=== PATIENT | female | born 1950 | race Caucasian/White ===

== ENCOUNTER → 2023-09-27 | Outpatient (CLI) | payer MEDICARE, BC ==
[2023-09-27 07:47] LABS: Basophils % (A) 0 %; Eosinophils % (A) 0 %; HCT 42.3 % (34.0-46.0); Lymphocytes # (A) 1.3 k/uL (1.0-4.8); Lymphocytes % (A) 16 %; MCH 31.3 pg (25.0-35.0); MCHC 33.1 g/dL (31.0-37.0); MCV 94.6 fL (80.0-100.0); Mean Platelet Volume 7.1; Monocytes # (A) 0.6 k/uL (0-1.0); Monocytes % (A) 8 %; Neutrophils # (A) 5.9 k/uL (1.3-7.7); Neutrophils % (A) 73 %; Platelet Count 391 k/uL (150-450); RBC 4.47 m/uL (3.80-5.40); RDW 14.1 % (11.5-15.5)
[2023-09-27 07:56] LABS: ALT 35 U/L (4-34); AST 33 U/L (14-36); African American GFR (CKD) >90 (>60 ml/min/1.73 sqM); Albumin 4.3 g/dL (3.5-5.0); Albumin/Globulin Ratio 1.4; Alkaline Phosphatase 57 U/L (38-126); Anion Gap 7 mmol/L; Blood Urea Nitrogen 24 mg/dL (7-17); Carbon Dioxide 26 mmol/L (22-30); Chloride 106 mmol/L (98-107); Globulin 3.1 g/dL; Glucose 73 mg/dL (74-99); Non-African American GFR(CKD) 88 (>60 ml/min/1.73 sqM); Potassium 3.8 mmol/L (3.5-5.1); Sodium 139 mmol/L (137-145); Total Bilirubin 0.9 mg/dL (0.2-1.3); Total Protein 7.4 g/dL (6.3-8.2)
--- NOTE | 2023-09-27 09:24 | CT ---
EXAMINATION TYPE: CT chest w con CT DLP: 155.4 mGycm, Automated exposure control for dose reduction was used. DATE OF EXAM: 09/27/2023 8:27 AM COMPARISON: Chest radiograph from 09/26/2023. CLINICAL INDICATION:Female, 72 years old with history of R05.3 CHRONIC COUGH; PHH, cough TECHNIQUE: Multiple axial images were obtained through the chest. Sagittal and coronal reformats were created for review. Contrast used:100 mL of Isovue 300 with IV Contrast (None if empty) Oral contrast used: (None if empty) FINDINGS: LUNGS/ PLEURA: Streaky atelectasis seen within the lung bases without focal airspace consolidation. N o pneumothorax or pleural effusion. Patchy airspace opacities in the right middle lobe. AIRWAY: Patent and unremarkable. HEART: Size within normal limits. Mild atherosclerosis of the arterial vasculature. MEDIASTINUM: No gross evidence of adenopathy. VASCULATURE: No aortic aneurysm. There is narrowing of the celiac axis at its origin off the aorta w ith poststenotic dilation suggesting some degree of stenosis. MUSCULOSKELETAL: No acute osseous abnormalities SOFT TISSUES/LYMPH NODES: Surgical clips in the left axilla. LOWER NECK: No significant findings. UPPER ABDOMEN: Probable liver cyst. IMPRESSION: 1. Right middle lobe patchy airspace opacities suggestive of pneumonia in the setting of cough. Shor t-term follow-up recommended. 2. 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 3. No evidence for pulmonary embolus or aortic dissection. 4. No evidence for lymphadenopathy. Follow up recommendations for incidental pulmonary nodules, if there are any, are per [employer] or [employer]. [email or web address].org/articles/[email or web address]?[email or web address]
[2023-09-27 15:47] LABS: Erythrocyte Sedimentation Rate 36 mm/Hr (0-30)
== END | disposition home or self-care (01) ==
LOC: RADCTMAIN 07:10
PROVIDERS: ATTEND Internal Medicine
DX: R91.8 Other nonspecific abnormal finding of lung field (principal); R05.3 Chronic cough
CPT/HCPCS: 82652; 80053; 85652; 84436; 84443; 85025; 86038; 71260; 36415; Q9967

== ENCOUNTER 2023-10-04 11:16 | Day surgery (SDC) | payer MEDICARE, BC ==
[~2023-10-04 11:16] MED LIST: HYDROmorphone 0.5 MG/0.5 ML SYRINGE IVP PRN; LACTATED RINGERS 1,000 ML IV SCH
[2023-10-04] MEDS ORDERED: SUCCINYLCHOLINE CHLORIDE 200 MG/10 ML VIAL IV ONE (12:15)
[2023-10-04] MEDS ORDERED: fentaNYL (PF) 50 MCG/ML 2 ML AMP ONE (12:15)
[2023-10-04] MEDS ORDERED: MIDAZOLAM 2 MG/2 ML VIAL ONE (12:15)
[2023-10-04] MEDS ORDERED: PROPOFOL 10 MG/ML 20 ML VIAL IV ONE (12:15)
[2023-10-04] MEDS ORDERED: LIDOCAINE 2% INJ 20 MG/ML INTRATRACH ONE (12:27)
[2023-10-04 13:17] VITALS: TEMP 97.5
[2023-10-04 14:07] VITALS: BP 132/62; PULSE 82; RESP 18
--- NOTE | 2023-10-04 19:24 | OP ---
OPERATIVE REPORT DATE OF SERVICE : PROCEDURES PERFORMED: Bronchoscopy, bronchoalveolar lavage of the right middle lobe, bronchoalveolar lavage of the left upper lobe, and endobronchial biopsies of the left upper lobe bronchus. PREOPERATIVE DIAGNOSIS: Chronic cough. POSTOPERATIVE DIAGNOSIS: Chronic cough. ANESTHESIA USED: Initially IV conscious sedation, converted to general anesthetic type of sedation. DESCRIPTION OF PROCEDURE: The patient was brought into the bronchoscopy suite, placed in the supine position, O2 was applied via Ventimask. We monitored her O2 saturation continuously, blood pressure was intermittently monitored, and cardiac rhythm was continuously monitored. After adequate IV conscious sedation, the bronchoscope was inserted through the left naris, and the bronchoscope was advanced to the area of the vocal cords. Lidocaine was instilled over the vocal cords, and the bronchoscope was advanced further down. Thorough examination was done of the trachea, right upper lobe, right middle lobe, right lower lobe, left upper lobe, lingula, and left lower lobe. There was evidence of purulent secretions noted in the area of the right mainstem bronchus, and right middle lobe, these were washed and suctioned, and the bronchoscope was wedged in the right middle lobe, lavage of the right middle lobe was done. The fluid was sent for different diagnostic studies/mostly cultures. However, went to the other side, left side, examination was done of the left upper lobe lingula and left lower lobe, there was evidence of abnormality noted in the mucosa of the left upper lobe bronchus. The mucosa was noted to be thick, edematous, and friable. I attempted to do the biopsies from the left upper lobe bronchus, however, after the first biopsy, the patient was getting more agitated, restless, and required intubation and mechanical ventilation to be able to finish the biopsies from the left upper lobe bronchus. The patient was then intubated by TELEVISION NEWS REPORTER, and she was Ambu bagged. The bronchoscope was advanced again, and examination of the left upper lobe bronchus was done again, minimal blood noted, the area was washed again and clean, the left upper lobe bronchus was noted to be friable, and minimal erythema noted in the left upper lobe bronchus. Multiple biopsies were done, minimal bleeding, nothing serious. Then, the bronchoscope was taken out of the airways, the patient was extubated by TELEVISION NEWS REPORTER, and she will be sent to recovery. No complications, no significant blood loss. Family/ updated on her condition and on the biopsies done. MMODL / IJN: [id number] /
[2023-10-05 18:41] LABS: Appearance,BF Cloudy (Clear); RBC, Body Fluid 45 /UL (0-2000)
[2023-10-05 20:08] LABS: Appearance,BF Bloody (Clear); RBC, Body Fluid 48125 /UL (0-2000)
[2023-10-06 10:23] LABS: Nucleated Cells, Body Fluid 605 /UL
[2023-10-06 10:28] LABS: Nucleated Cells, Body Fluid 206 /UL
== END 2023-10-04 14:10 | disposition home or self-care (01) ==
LOC: ORWHC2ENDO 11:16
PROVIDERS: ATTEND Internal Medicine
DX: J98.4 Other disorders of lung (principal); F41.9 Anxiety disorder, unspecified; F32.A Depression, unspecified; Z79.899 Other long term (current) drug therapy; Z98.890 Other specified postprocedural states; Z85.3 Personal history of malignant neoplasm of breast; Z80.3 Family history of malignant neoplasm of breast
CPT/HCPCS: 87798 ×3; 87496; 87498; 87529; 88108; 88305; 89050; 87502; 87634; 87070; 87205; 87116; 87102; 87206; 87635; 31625; 31624; J2001; J2250; J0330; J3010; J2704